=== PATIENT | male | born 1995 | race Two or more races ===

== ENCOUNTER 2024-09-24 17:01 | Emergency (ER) | payer MEDICAID, OTHER ==
[~2024-09-24] VITALS: Ht 154.9 cm; Wt 95.5 kg
[2024-09-24] MEDS: FLUORESCEIN SOD OPTH TEST STRIP RIGHTEYE ONE (19:01)
[2024-09-24] MEDS: TETRACAINE HCL 0.5% OPTH(EYE) SOLN 4ML RIGHTEYE ONE (19:02)
--- NOTE | 2024-09-24 19:30 | ED.PDOC ---
Eye-HPI HPI Comments THIS IS A 29-YEAR-OLD MALE PRESENTS TO THE ED CHIEF COMPLAINT RIGHT EYE PAIN. PATIENT STATES HE WAS WORKING OUTSIDE WHEN A JON OF WIND CAME AND BLEW SOMETHING IN HIS EYE. SUDDEN ONSET OF PAIN, REDNESS, AND WATERY DRAINAGE. VISION CHANGES, FEVER, CHILLS, OR ANY OTHER KNOWN INJURY. Chief Complaint: Eye Problem Time Seen by MD: 18:06 Primary Care Provider: none Reviewed Notes: Nurses Notes, Store Grocery Merchandiser Notes, Medications, Allergies Allergies: Coded Allergies: NO KNOWN ALLERGIES (Unverified , 09/24/24) Information Source: Patient Mode of Arrival: Ambulatory Physical Exam General Appearance: No Apparent Distress, Normal HEENT: Pharynx Normal, Other (RIGHT EYE HYPEREMIA CONJUNCTIVA OBVIOUS FOREIGN BODY NOTED DEFER TO WOOD'S LAMP EXAM) Neck: Full Range of Motion, Non-Tender Respiratory: Chest Non-Tender, Lungs Clear, No Accessory Muscle Use, No Respiratory Distress, Normal Breath Sounds Cardiovascular: No Murmur, Normal Peripheral Pulses, Regular Rate/Rhythm Breast Exam: Deferred Gastrointestinal: Non Tender, Soft Genitalia: Deferred Pelvic: Deferred Rectal: Deferred Extremities: Normal capillary refill, Normal inspection, Normal range of motion, Non-tender, No pedal edema Musculoskeletal : Apperance: Normal Neurologic: Alert, manager of warehouse II-XII nml as Tested, No Motor Deficits, Normal Affect, Normal Mood, No Sensory Deficits Cerebellar Function: Normal Reflexes: Normal Skin: Dry, Normal Color, Warm Lymphatic: No Adenopathy Was a procedure done? Was a procedure done?: Yes Sedation Sedation?: No Informed consent obtained: Yes Foreign Body Removal Foreign body in: Eye (RIGHT) Anesthetic: Other (TETRACAINE 0.5% 1 DROP) Prep: Prep (FLUORESCEIN) Procedure: Other (FLUORESCEIN UPTAKE 4:00 A.M. POSITION CORNEA. LACERATION, OR ULCERATION, POSSIBLE PENETRATING GLOBE INJURY VERSUS ABRASION NO NOTED FOREIGN BODY) Informed consent obtained: Yes Risks/benefits/alt described: Yes EENT DIFF Eye: Corneal Ulceration, Foreign Body-Conjunctiva, Foreign Body-Corneal, Foreign Body-Intraocular X-Ray, Labs, Meds, VS Vital Signs Date Time Temp Pulse Resp B/P (MAP) Pulse Ox O2 Delivery O2 Flow Rate FiO2 09/24/24 21:21 97.9 77 12 120/69 (86) 97 97.9 09/24/24 19:05 98.1 100 17 157/79 (105) 98 98.1 09/24/24 19:05 100 17 98 Room Air 09/24/24 17:47 98.1 100 17 157/79 (105) 98 Current Medications Medications (Trade) Dose Ordered Sig/Juan C Route Start Time Stop Time Status Last Admin Oxycodone/ Acetaminophen (Percocet 5/ 325MG Tablet) 1 tab ONCE ONCE PO 09/24/24 20:00 09/24/24 20:01 DC 09/24/24 20:00 Ketorolac Tromethamine (Toradol Injection) 60 mg ONCE ONCE IM 09/24/24 20:45 09/24/24 20:46 DC 09/24/24 20:59 X-Ray, Labs, Meds, VS Comment SEE WOOD'S LAMP PROCEDURE NOTES CT MAXILLOFACIAL SHOWS NO PENETRATING FOREIGN BODIES. POSSIBLE GLOBE INJURY VERSUS CORNEAL ABRASION. RECOMMEND TRANSFER TO A HIGHER LEVEL OF CARE FOR OPHTHALMOLOGY CONSULT AND EVALUATION. PATIENT AGREES WITH PLAN OF CARE. [facility] PAT[facility]. PATIENT STATES WOULD LIKE TO LEAVE AMA WAIT ANY LONGER FOR THE TRANSFER. ADVISED PATIENT OF THE RISKS SUCH NOT LIMITED TO LOSS OF VISION, INFECTION, SEPSIS, . INDICATES UNDERSTANDING AND ELECTS TO LEAVE AGAINST MEDICAL ADVICE OF THE RISKS Time of 1ST Reevaluation: 19:30 Reevaluation 1ST: Improved Patient Education/Counseling: Diagnosis, Treatment, Prognosis, Need For Follow Up Family Education/Counseling: Diagnosis, Treatment, Prognosis, Need For Follow Up Departure 1 Departure Time of Disposition: 21:41 Impression: Primary Impression: Eyeball wound due to penetrating foreign body Disposition: 04 INTERMEDIATE CARE FACILITY Condition: Stable Discharged With: Self Critical Care Note Critical Care Time?: No Stability Stability form required: JAY Hobbs Sep 24, 2024 19:30
--- NOTE | 2024-09-24 19:59 | DVH ---
HISTORY: R/O FB RIGHT EYE TECHNIQUE: Nonenhanced axial images through the facial bones with coronal and sagittal MPR. Radiation dose Information: CT Dose: CTDI volume is mGy. Dose-length product is mGy*cm COMPARISON: None FINDINGS: Mandible: Unremarkable Maxilla: Unremarkable Zygomatic arches: Unremarkable Nasal bone: Unremarkable Orbits: Unremarkable Sinuses: Clear Facial swelling: None IMPRESSION: 1. No abnormality demonstrated. No radiopaque foreign body. Radiation optimization: All CT scans at this facility use at least one of these dose optimization meli hniques: Automated exposure control mA and/or kV adjustment per patient size (includes targeted exams where dose is matched to clinical indication) or iterative reconstruction.
[2024-09-24] MEDS: OXYCODONE W/ ACETAMINOPHEN 5/325MG TABLET PO ONE (20:00)
[2024-09-24] MEDS: KETOROLAC TROMETH 60MG/2ML VIAL IM ONE (20:59)
[2024-09-24 21:21] VITALS: BP 120/69; PULSE 77; RESP 12; TEMP 97.9; O2SAT 97
== END 2024-09-24 21:44 | disposition left against medical advice (07) ==
LOC: ER 17:01
DX: S05.8X1A Other injuries of right eye and orbit, initial encounter (principal); X58.XXXA Exposure to other specified factors, initial encounter; Y93.89 Activity, other specified; Y92.89 Other specified places as the place of occurrence of the external cause; Y99.8 Other external cause status
CPT/HCPCS: 70486; 96372; 99285; J1885

== ENCOUNTER 2025-03-06 12:37 | Inpatient (IN) | payer MEDICAID ==
[~2025-03-06] VITALS: Ht 180.3 cm; Wt 93.5 kg
--- NOTE | 2025-03-06 13:53 | ED.PDOC ---
History of Present Illness HPI Comments 29 y/o M is BIBA for c/c alcohol intoxication. Per EMS report, patient was found at a [employer] parking lot complaining of weakness after eloping from [facility] ED and drinking 2x fireball shots, earlier, today. Previous ED visit for same c/c of alcohol intoxication. Vitals were noted to have been stable and within normal limits, with exception of being tachycardic and hypertensive and having a blood glucose of 111. Patient denies having additional acute associated symptoms at this time. Chief Complaint: ETOH Time Seen by MD: 13:30 Primary Care Provider: none Reviewed Notes: Nurses Notes, Electrical Installation Inspector Notes, Medications, Allergies Allergies: Coded Allergies: NO KNOWN ALLERGIES (Unverified , 09/24/24) Information Source: Patient, Emergency Med Personnel Mode of Arrival: EMS Severity: Moderate Duration: Since onset Prehospital treatment: 12 Lead EKG, Accucheck, Surface Supply Breathing Apparatus Past Medical History PAST MEDICAL HISTORY: Denies Surgical History: Denies all surgeries Family History Family History: Unknown Social History Smoker: Non-Smoker Alcohol: Heavy Drugs: Denies Drug Use Lives In: Home All Other Systems: Reviewed and Negative (As per HPI) Physical Exam General Appearance: No Apparent Distress, Normal, Other (intoxicated appearance ) HEENT: Normal ENT Inspection, Pharynx Normal, TMs Normal Neck: Full Range of Motion, Non-Tender, Normal, Normal Inspection Respiratory: Chest Non-Tender, Lungs Clear, No Accessory Muscle Use, No Respiratory Distress, Normal Breath Sounds Cardiovascular: No Edema, No JVD, No Murmur, No Gallop, Normal Peripheral Pulses, Regular Rate/Rhythm Breast Exam: Deferred Gastrointestinal: No Organomegaly, Non Tender, No Pulsatile Mass, Normal Bowel Sounds, Soft Genitalia: Deferred Pelvic: Deferred Rectal: Deferred Extremities: No calf tenderness, Normal capillary refill, Normal inspection, Normal range of motion, Non-tender, No pedal edema Musculoskeletal : Apperance: Normal Neurologic: Alert, senior accounts payable clerk II-XII nml as Tested, No Motor Deficits, No Sensory Deficits, Other (intoxicated ) Cerebellar Function: Normal Reflexes: Normal Skin: Dry, Normal Color, Warm Lymphatic: No Adenopathy Was a procedure done? Was a procedure done?: No Differential Dx Considerations may include: alcohol intoxication, substance abuse and dependency, electrolyte imbalance, dehydration, among others X-Ray, Labs, Meds, VS Vital Signs Date Time Temp Pulse Resp B/P (MAP) Pulse Ox O2 Delivery O2 Flow Rate FiO2 03/06/25 13:47 98.8 105 20 146/89 (108) 94 98.8 03/06/25 13:02 99.0 117 16 147/70 (95) 98 99.0 Lab Test 03/06/25 16:26 Range/Units Plasma/Serum Blood Alcohol 293.9 H <10 mg/dL Current Medications Medications (Trade) Dose Ordered Sig/Juan C Route Start Time Stop Time Status Last Admin Sodium Chloride 1,000 ml @ 1,000 mls/hr Q1H ONCE IV 03/06/25 14:00 03/06/25 14:59 DC 03/06/25 14:00 X-Ray, Labs, Meds, VS Comment This 30-year-old male presents secondary to alcohol intoxication. Patient endorses drinking alcohol. The patient has been 1 L of IV hydration upon reassessment, he continued to be intoxicated however, continue be ambulatory completely neurologically intact. His blood alcohol was nearly 300. The patient was monitored until he was ambulatory without assistance and then discharged home. He is asked to refrain from drinking alcohol. Time of 1ST Reevaluation: 14:00 Reevaluation 1ST: Unchanged Patient Education/Counseling: Need For Follow Up Family Education/Counseling: No Family Present SEPSIS Sepsis Screen Date sepsis recognized/suspect: Mar 06, 2025 Time Sepsis recognized/suspect: 1239 Recent Procedure: No On Antibiotic Therapy: No Respiratory Rate >20: No Heart Rate >90: Yes Temp<36 C (96.8 F) or >38.3 C: No SBP <90 or MAP <65 mmHG: No New Acute Mental Status Change: No Is the patient on CPAP, BIPAP,: No Physician Orders Blood Alcohol (03/06/25 15:21) Vital Signs Date Time Temp Pulse Resp B/P (MAP) Pulse Ox O2 Delivery O2 Flow Rate FiO2 03/06/25 13:47 98.8 105 20 146/89 (108) 94 98.8 03/06/25 13:02 99.0 117 16 147/70 (95) 98 99.0 Medications Medications Dose Ordered Sig/Juan C Route Start Time Stop Time Status Last Admin Dose Admin Sodium Chloride 1,000 ml @ 1,000 mls/hr Q1H ONCE IV 03/06/25 14:00 03/06/25 14:59 DC 03/06/25 14:00 Departure 1 Departure Time of Disposition: 17:07 Impression: Primary Impression: Alcohol intoxication Disposition: 01 HOME / SELF CARE / HOMELESS Condition: Fair Critical Care Note Critical Care Time?: No Stability Stability form required: No Heart Score Heart Score: Heart Score Response (Comments) Value History N/A 0 EKG N/A 0 Age N/A 0 Risk Factors N/A 0 Troponin N/A 0 Total 0 I personally scribed for TRACY CUELLAR MD ([email or web address]) on 03/06/25 at 13:53. El ectronically submitted by Pollo Poole ([email or web address]). I personally scribed for TRACY CUELLAR MD ([email or web address]) on 03/06/25 at 14:17. Electronically submitted by Pollo Poole ([email or web address]). TRACY CUELLAR MD Mar 06, 2025 13:53
[2025-03-06] MEDS: SODIUM CHLORIDE 0.9% 1,000 ML IV ONE ×2 (14:00→19:04)
[2025-03-06] MEDS: ONDANSETRON HCL 4 MG/2 ML VIAL IV ONE (19:04)
[2025-03-06] MEDS: LORazepam 2MG/ML-1ML VIAL IV ONE (19:04)
[2025-03-06] MEDS: FAMOTIDINE (10MG/ML) 2ML VL IV ONE (19:05)
[2025-03-06 20:09] LABS: Hematocrit 46.0 % (41.0-53.0); Hemoglobin 15.4 g/dL (13.5-17.5); Mean Corpuscular Hemoglobin 30.5 pg (28.0-32.0); Mean Corpuscular Volume 90.9 fL (80.0-100.0); Nucleated Red Blood Cells % 0.0 %
[2025-03-06 20:12] LABS: Potassium 4.1 mmol/L (3.5-5.1); Sodium 144 mmol/L (136-145)
[2025-03-06 20:13] LABS: Anion Gap 14 (5-15); Calcium 9.0 mg/dL (8.7-10.4); Carbon Dioxide 23 mmol/L (20-31)
[2025-03-06 20:14] LABS: Chloride 107 mmol/L (98-107)
[2025-03-06 20:18] LABS: BUN/Creatinine Ratio 13.0 (10.0-20.0); Blood Urea Nitrogen 14 mg/dL (9-23); Glucose 81 mg/dL (74-106)
--- NOTE | 2025-03-06 20:36 | ED.PDOC ---
Departure 1 Departure Time of Disposition: 20:33 (Patient left and had multiple syncopal episodes. We will admit patient for further workup and expert consultation) Impression: Primary Impression: Syncope and collapse Additional Impression: Alcohol intoxication Qualified Codes: F10.921 - Alcohol use, unspecified with intoxication delirium Disposition: ADMITTED INPATIENT Admit to: Med Surg Condition: Serious ANGELITO TEAGUE MD Mar 06, 2025 20:36
--- NOTE | 2025-03-06 20:51 | DVH ---
CLINICAL INDICATION: fall TECHNIQUE: 2 radiographic views of the right tibia and fibula were obtained. Comparison: None FINDINGS/IMPRESSION: There is a questionable nondisplaced oblique fracture through the distal right fibula. Correlate for tenderness over this area. Tibia appears intact.
--- NOTE | 2025-03-06 21:06 | DVH ---
EXAMINATION: AP portable chest radiograph CLINICAL HISTORY: etoh COMPARISON: None FINDINGS: Shallow inspiration. Lead wires overlie the thorax. No dominant consolidations in the visualized lung clarke. The costophrenic angles appear clear. No s izable pleural effusion or pneumothorax. The cardiomediastinal silhouette appears within normal limit s given technique. IMPRESSION: Limited study. No acute cardiopulmonary findings as visualized.
--- NOTE | 2025-03-06 22:05 | DVH ---
CT BRAIN WITHOUT CONTRAST HISTORY: syncope TECHNIQUE: Axial scans were obtained from the skull base through the vertex without contrast. Sagitta l and coronal reformats were generated. One or more of the following radiation dose reduction techniq ues were used for this examination: automated exposure control, adjustment of the mA and/or kV accord ing to patient size, use of iterative reconstruction technique. COMPARISON: None FINDINGS: No acute intracranial hemorrhage or evidence of large vessel territorial infarction identified at thi s time. No midline shift. The basilar cisterns are patent. Briseno-white differentiation appears relat ively preserved. The visualized paranasal sinuses and mastoid air cells are clear. No grossly displaced calvarial frac ture is identified. IMPRESSION: No acute intracranial findings.
[2025-03-06] MEDS ORDERED: FOLIC ACID 1 MG in D5W 5% 50 ML INJ ONE (22:15)
[2025-03-06] MEDS ORDERED: hydrALAZINE HCL 20 MG/ML VL IV PRN (22:15)
[2025-03-06] MEDS ORDERED: DOCUSATE SOD 100 MG CAP PO PRN (22:15)
[2025-03-06] MEDS ORDERED: ACETAMINOPHEN 325 MG TAB PO PRN (22:15)
[2025-03-06] MEDS: THIAMINE 100mg/ml INJ (200mg/2ml VIAL) IV ONE (23:07)
--- NOTE | 2025-03-06 23:07 | DVHHP2 ---
History of Present Illness Reason for Visit: Alcohol intoxication History of Present Illness The patient is a 29-year-old male who denies past medical history presented to [facility] ED for evaluation of alcohol intoxication. As reported by EMS, patient was found at a [employer]'s parking lot complaining of generalized weakness after eloping from [place] and drinking to fireball shots earlier today. Patient was seen and evaluated in the ED with tremors, generalized weakness, and unsteady gait. Patient reports she had a fall with sustained injury to his lower extremity two weeks ago. Laboratory data shows WBC 5.1, platelets 368, sodium 144, potassium 4.1, BUN 14, creatinine 1.08, glucose 81, calcium 9.0, serum alcohol to 93.9, blood pressure 126/76, heart rate 87, temperature 98.0 F, O2 saturation 99% on room air. Tibia/fibula x-ray revealing nondisplaced oblique fracture through the distal right fibula, correlate for tenderness over this area. Head CT showed no acute intracranial findings. Please see medication orders section in the computer. On my assessment, patient denied chest pain, no headache, no dizziness, no diaphoresis, no shortness of breaths, no nausea, no vomiting, no fever, no chills. Patient was admitted for further evaluation and medical management. Past Medical History Denies past medical history Past Surgical History Denies all surgeries Family History Reviewed, noncontributory to the management of this case. Past Social History The patient lives at home, denies smoking, drinks alcohol heavily, denies illicit drugs abuse. Review of Systems Constitutional: Yes: Weakness; No: Fever, Chills, Sweats, Malaise, Other Eyes: No: Pain, Vision change, Conjunctivae inflammation, Eyelid inflammation, Other, Redness ENT: No: Ear pain, Ear discharge, Nose pain, Nose discharge, Nose congestion, Mouth pain, Mouth swelling, Throat pain, Throat swelling, Other Respiratory: No: Cough, Dry, Shortness of breath, SOB with excertion, Wheezing, Hemoptysis, Pleuritic Pain, Sputum, Wheezing, Other Cardiovascular: No: Chest Pain, Palpitations, Orthopnea, Paroxysmal Noc. Dyspnea, Edema, Lt Headedness, Other Gastrointestinal: No: Nausea, Vomiting, Abdominal Pain, Diarrhea, Constipation, Melena, Hematochezia, Other Genitourinary: No Dysuria, No Frequency, No Incontinence, No Hematuria, No Retention, No Other Musculoskeletal: No: other, neck pain, shoulder pain, arm pain, back pain, hand pain, leg pain, foot pain Skin: No: Rash, Lesions, Jaundice, Bruising, Other Neurological: Other (Tremors); No: Weakness, Numbness, Incoordination, Change in speech, Confusion, Seizures Allergies: Coded Allergies: NO KNOWN ALLERGIES (Unverified , 09/24/24) Medications Current Medications Medications Dose Ordered Sig/Juan C Route Start Time Stop Time Status Last Admin Dose Admin Folic Acid 1 mg/ Dextrose 50.2 ml @ 200.8 mls/ hr DAILY INJ 03/07/25 10:00 Thiamine HCl 100 mg DAILY IV 03/07/25 10:00 Lorazepam 1 mg Q2HP PRN IV 03/06/25 22:15 Chlordiazepoxide HCl 25 mg Q6HPRN PRN PO 03/06/25 22:15 Famotidine 20 mg DAILY IV 03/07/25 10:00 Hydralazine HCl 10 mg Q6HP PRN IV 03/06/25 22:15 Sodium Chloride 10 ml Q8HR IV 03/07/25 06:00 Acetaminophen/ Hydrocodone Bitart 1 tab Q4HP PRN PO 03/06/25 22:15 Ondansetron HCl 4 mg Q4HP PRN IV 03/06/25 22:15 Docusate Sodium 100 mg BIDPRN PRN PO 03/06/25 22:15 Acetaminophen 650 mg Q6HP PRN PO 03/06/25 22:15 Exam Vital Signs Vital Signs Date Time Temp Pulse Resp B/P (MAP) Pulse Ox O2 Delivery O2 Flow Rate FiO2 03/06/25 22:00 91 15 125/74 (91) 100 03/06/25 20:00 98.0 98.0 03/06/25 19:35 Room Air* 0 21 General Appearance: Alert, Oriented X3, Cooperative, No acute distress HEENT: Atraumatic, PERRLA, EOMI, Mucous membr. moist/pink Respiratory: Clear to auscultation, Normal air movement Cardiovascular: Regular rate, Normal S1, Normal S2, No murmurs Abdominal: Normal bowel sounds, Soft, No tenderness, No hepatospenomegaly, No masses Extremities: No clubbing, No cyanosis, No edema, Normal pulses, No tenderness/swelling Skin: No rashes, No breakdown, No significant lesion Neuro: Normal speech, Normal tone, Sensation intact, Cranial nerves 3-12 NL, Reflexes 2+, Other (Generalized weakness) Psych/Mental Status: Mental status NL, Mood NL Labs/Xrays Labs Test 03/06/25 16:26 Range/Units White Blood Count 5.1 4.4-10.8 10^3/uL Red Blood Count 5.06 4.5-5.90 10^6/uL Hemoglobin 15.4 13.5-17.5 g/dL Hematocrit 46.0 41.0-53.0 % Mean Corpuscular Volume 90.9 80.0-100.0 fL Mean Corpuscular Hemoglobin 30.5 28.0-32.0 pg Mean Corpuscular Hemoglobin Concent 33.5 32.0-36.0 g/dL Red Cell Distribution Width 15.0 H 11.8-14.3 % Platelet Count 368 140-450 10^3/uL Mean Platelet Volume 7.7 6.9-10.8 fL Neutrophils (%) (Auto) 75.0 37.0-80.0 % Lymphocytes (%) (Auto) 20.9 10.0-50.0 % Monocytes (%) (Auto) 3.5 0.0-12.0 % Eosinophils (%) (Auto) 0.1 0.0-7.0 % Basophils (%) (Auto) 0.5 0.0-2.0 % Neutrophils # (Auto) 3.8 1.6-8.6 10 ^3/uL Lymphocytes # (Auto) 1.1 0.4-5.4 10 ^3/uL Monocytes # (Auto) 0.2 0-1.3 10 ^3/uL Eosinophils # (Auto) 0 0-0.8 10 ^3/uL Basophils # (Auto) 0 0-0.2 10 ^3/uL Nucleated Red Blood Cells 0.0 % Sodium Level 144 136-145 mmol/L Potassium Level 4.1 3.5-5.1 mmol/L Chloride Level 107 98-107 mmol/L Carbon Dioxide Level 23 20-31 mmol/L Anion Gap 14 5-15 Blood Urea Nitrogen 14 9-23 mg/dL Creatinine 1.08 0.700-1.30 mg/dL Glomerular Filtration Rate Calc 96 >90 mL/min BUN/Creatinine Ratio 13.0 10.0-20.0 Serum Glucose 81 74-106 mg/dL Calcium Level 9.0 8.7-10.4 mg/dL Plasma/Serum Blood Alcohol 293.9 H <10 mg/dL PATIENT: KELSEY LOWERYOACCT: [id number] UNIT: [id number] : 1995 LOC: ER ROOM / BED: / AGE / SEX: 29 / M ADM STATUS: REG ER SERVICE [id number] ORDERING PHYSICIAN: ANGELITO TEAGUE MD PROCEDURE(s): RTBFB - R TIB FIB XRAY REASON: fall ORDER NUMBER(s): [id number], ACCESSION NUMBER(s): [id number] CLINICAL INDICATION: fall TECHNIQUE: 2 radiographic views of the right tibia and fibula were obtained. Comparison: None FINDINGS/IMPRESSION: There is a questionable nondisplaced oblique fracture through the distal right fibula. Correlate for tenderness over this area. Tibia appears intact. ORDERING PHYSICIAN: ANGELITO TEAGUE MD PROCEDURE(s): HWOCT - HEAD WITHOUT CONTRAST REASON: syncope ORDER NUMBER(s): [id number], ACCESSION NUMBER(s): [id number] CT BRAIN WITHOUT CONTRAST HISTORY: syncope TECHNIQUE: Axial scans were obtained from the skull base through the vertex without contrast. Sagittal and coronal reformats were generated. One or more of the following radiation dose reduction techniques were used for this examination: automated exposure control, adjustment of the mA and/or kV according to patient size, use of iterative reconstruction technique. COMPARISON: None FINDINGS: No acute intracranial hemorrhage or evidence of large vessel territorial i nfarction identified at this time. No midline shift. The basilar cisterns are patent. Briseno-white differentiation appears relatively preserved. The visualized paranasal sinuses and mastoid air cells are clear. No grossly displaced calvarial fracture is identified. IMPRESSION: No acute intracranial findings. ORDERING PHYSICIAN: ANGELITO TEAGUE MD PROCEDURE(s): CXRP - CHEST PORTABLE REASON: etoh ORDER NUMBER(s): [id number], ACCESSION NUMBER(s): [id number] EXAMINATION: AP portable chest radiograph CLINICAL HISTORY: etoh COMPARISON: None FINDINGS: Shallow inspiration. Lead wires overlie the thorax. No dominant consolidations in the visualized lung clarke. The costophrenic angles appear clear. No sizable pleural effusion or pneumothorax. The cardiomediastinal silhouette appears within normal limits given technique. IMPRESSION: Limited study. No acute cardiopulmonary findings as visualized. SEPSIS Sepsis Screen Date sepsis recognized/suspect: Mar 06, 2025 Time Sepsis recognized/suspect: 1239 Recent Procedure: No On Antibiotic Therapy: No Respiratory Rate >20: No Heart Rate >90: Yes Temp<36 C (96.8 F) or >38.3 C: No SBP <90 or MAP <65 mmHG: No New Acute Mental Status Change: No Is the patient on CPAP, BIPAP,: No Physician Orders R Tib Fib Xray (03/06/25 18:59) Soc Telemed Psych Consult (03/06/25 19:35) Chest Portable (03/06/25 19:56) Head Without Contrast (03/06/25 20:33) Folic Acid (03/07/25 10:00) Thiamine Inj (03/07/25 10:00) Lorazepam 2mg/Ml Inj (Ativan Inj) (03/06/25 22:15) Chlordiazepoxide Hcl Capsule (Librium Ca (03/06/25 22:15) Famotidine Injection (Pepcid Injection) (03/07/25 10:00) Hydralazine Injection (Apresoline Inject (03/06/25 22:15) Allergies (03/06/25 22:14) Code Status (03/06/25 22:14) Sodium Chloride Lock (Saline Lock Ns) (03/07/25 06:00) Oxygen Per Hour (03/06/25 22:14) Hydrocodone-Acet 5/325mg Tab ([place] 5/32 (03/06/25 22:15) Ondansetron Hcl (Zofran) (03/06/25 22:15) Docusate Sodium Capsule (Colace Capsule) (03/06/25 22:15) Fall Risk Precautions In Place QSHIFT (03/06/25 22:14) Complete Blood Count (03/07/25 04:00) Comprehensive Metabolic Panel (03/07/25 04:00) Cardiac Diet-2gna,Lofat,Lochol (03/07/25 Breakfast) Condition: Serious (03/06/25 22:14) Acetaminophen Tablet (Tylenol Tablet) (03/06/25 22:15) Maintain Bed Rest (03/06/25 22:14) Sequential Compression Device (03/06/25 ) Vital Signs Date Time Temp Pulse Resp B/P (MAP) Pulse Ox O2 Delivery O2 Flow Rate FiO2 03/06/25 22:00 91 15 125/74 (91) 100 03/06/25 20:00 98.0 87 19 126/76 (93) 100 98.0 03/06/25 19:35 Room Air* 0 21 03/06/25 18:50 Room Air* 0 21 03/06/25 18:50 110 16 149/86 (107) 100 03/06/25 17:19 97.8 87 17 134/76 (95) 95 97.8 Laboratory Tests Test 03/06/25 16:26 White Blood Count 5.1 10^3/uL (4.4-10.8) Medications Medications Dose Ordered Sig/Juan C Route Start Time Stop Time Status Last Admin Dose Admin Famotidine 20 mg ONCE ONCE IV 03/06/25 19:00 03/06/25 19:01 DC 03/06/25 19:05 20 MG Lorazepam 2 mg ONCE ONCE IV 03/06/25 19:00 03/06/25 19:01 DC 03/06/25 19:04 2 MG Ondansetron HCl 4 mg ONCE ONCE IV 03/06/25 19:00 03/06/25 19:01 DC 03/06/25 19:04 4 MG Sodium Chloride 1,000 ml @ 1,000 mls/hr Q1H ONCE IV 03/06/25 14:00 03/06/25 14:59 DC 03/06/25 14:00 1,000 MLS/HR Sodium Chloride 1,000 ml @ 1,000 mls/hr Q1H ONCE IV 03/06/25 19:00 03/06/25 19:59 DC 03/06/25 19:04 1,000 MLS/HR Assessment/Plan Assessment/Plan Alcohol intoxication Alcohol withdrawal syndrome Generalized weakness Nondisplaced fracture of the distal right fibula Plan 1. Admit to telemetry unit 2. Breathing treatment 3. Pain control management 4. Management of fluids and electrolytes 5. Consultation for orthopedic/hospitalist 6. Diagnostic tests tibia/fibula x-ray 7. DVT prophylaxis-on SCDs 8. Repeat labs CBC, CMP in a.m. 9. Continue with current medical management 10. Treatment plan discussed with patient and RN. Patient verbalized understanding. Plan discussed with: Patient, Other (RN) My Orders Orders - DOUGLAS SÁNCHEZ DNP Procedure Category Date Status Time Folic Acid PHA 03/07/25 In Process 10:00 Thiamine Inj PHA 03/07/25 In Process 10:00 Lorazepam 2mg/Ml Inj PHA 03/06/25 In Process (Ativan Inj) 22:15 Chlordiazepoxide Hcl PHA 03/06/25 In Process Capsule (Librium Ca 22:15 Famotidine Injection PHA 03/07/25 In Process (Pepcid Injection) 10:00 Hydralazine Injection PHA 03/06/25 In Process (Apresoline Inject 22:15 Allergies LAMINE 03/06/25 In Process 22:14 Code Status CODE 03/06/25 Transmitted 22:14 Sodium Chloride Lock PHA 03/07/25 In Process (Saline Lock Ns) 06:00 Oxygen Per Hour RT 03/06/25 Transmitted 22:14 Hydrocodone-Acet PHA 03/06/25 In Process 5/325mg Tab ([place] 22:15 Ondansetron Hcl PHA 03/06/25 In Process (Zofran) 22:15 Docusate Sodium PHA 03/06/25 In Process Capsule (Colace 22:15 Fall Risk Precautions LAMINE 03/06/[address] 22:14 Complete Blood Count LAB 03/07/25 Verified 04:00 Comprehensive LAB 03/07/25 Verified Metabolic Panel 04:00 Cardiac DIET 03/07/25 Transmitted Diet-2gna,Lofat,Lochol Breakfast Condition: Serious LAMINE 03/06/25 In Process 22:14 Acetaminophen Tablet PHA 03/06/25 In Process (Tylenol Tablet) 22:15 Maintain Bed Rest LAMINE 03/06/25 In Process 22:14 Sequential LAMINE 03/06/25 In Process Compression Device Problem List: (1) Alcohol intoxication (2) Alcohol withdrawal syndrome (3) Generalized weakness (4) Nondisplaced fracture of distal end of right fibula Date of Service: Mar 06, 2025 Billing Provider: DOUGLAS SÁNCHEZ DNP Common Visit Codes: [id number] INP/OBS CARE (HIGH) DOUGLAS SÁNCHEZ DNP Mar 06, 2025 23:07
[2025-03-06] MEDS: LORazepam 2MG/ML-1ML VIAL IV PRN (23:08)
[2025-03-06] MEDS ORDERED: NITROGLYCERIN 0.4 MG SL TAB SL PRN (23:15)
[2025-03-06] MEDS: HYDROcodone-ACET 5/325MG TAB PO PRN (23:38)
[2025-03-06] MEDS: MULTIPLE VITAMIN TAB PO ONE (23:38)
[2025-03-07] VITALS (8 sets, daily range): BP systolic 142–155; BP diastolic 82–99; PULSE 87–103; RESP 18–19; TEMP 97.5–98.9; O2SAT 98–100
[2025-03-07] MEDS: SODIUM CHLOR 0.9% PF (SALINE LOCK) 10ML VIAL/SYR IV SCH (05:58)
[2025-03-07 06:18] LABS: Hematocrit 41.7 % (41.0-53.0); Hemoglobin 14.6 g/dL (13.5-17.5); Mean Corpuscular Hemoglobin 31.2 pg (28.0-32.0); Mean Corpuscular Volume 89.4 fL (80.0-100.0); Nucleated Red Blood Cells % 0.1 %
[2025-03-07 06:39] LABS: Albumin 4.3 g/dL (3.2-4.8); Alkaline Phosphatase 63 U/L (46-116); Anion Gap 15 (5-15); BUN/Creatinine Ratio 15.1 (10.0-20.0); Bilirubin, Total 0.7 mg/dL (0.2-1.0); Blood Urea Nitrogen 13 mg/dL (9-23); Calcium 9.3 mg/dL (8.7-10.4); Carbon Dioxide 23 mmol/L (20-31); Chloride 102 mmol/L (98-107); Potassium 3.7 mmol/L (3.5-5.1); Sodium 140 mmol/L (136-145); Total Protein 6.8 g/dL (5.7-8.2)
[2025-03-07 06:40] LABS: Alanine Aminotransferase 92 U/L (7-40); Glucose 66 mg/dL (74-106)
--- NOTE | 2025-03-07 08:32 | DVHINCON2 ---
Date of service: Mar 07, 2025 Reason for Consultation Right ankle fracture History of Present Illness 29 yo M who is admitted for alcohol withdrawal sp mechanical fall about 2 week ago twisting his right ankle. Pain/swelling/trouble bearing weight since that time. Patient was having some confusion/shakiness/tremors/weakness from withdrawals. Past Medical History Denies past medical history Past Surgical History Denies all surgeries Family History: Diabetes mellitus G8 FATHER Hypertension G8 FATHER Allergies: Coded Allergies: NO KNOWN ALLERGIES (Unverified , 09/24/24) Home Meds No Active Prescriptions or Reported Meds Current Medications Current Medications Medications (Trade) Dose Ordered Sig/Juan C Route PRN Reason Start Time Stop Time Status Last Admin Folic Acid 1 mg/ Dextrose 50.2 ml @ 200.8 mls/ hr DAILY INJ 03/07/25 10:00 03/06/25 23:26 DC Thiamine HCl 100 mg DAILY IV 03/07/25 10:00 Lorazepam (Ativan Inj) 1 mg Q2HP PRN IV ANXIETY 03/06/25 22:15 03/07/25 05:17 Chlordiazepoxide HCl (Librium Capsule) 25 mg Q6HPRN PRN PO ALCOHOL WITHDRAWAL SYMPTOMS 03/06/25 22:15 03/07/25 01:09 Famotidine (Pepcid Injection) 20 mg DAILY IV 03/07/25 10:00 Hydralazine HCl (Apresoline Injection) 10 mg Q6HP PRN IV SBP>150 03/06/25 22:15 Sodium Chloride (Saline Lock Ns) 10 ml Q8HR IV 03/07/25 06:00 03/07/25 05:58 Acetaminophen/ Hydrocodone Bitart ([place] 5/325MG Tab) 1 tab Q4HP PRN PO MODERATE PAIN (4-6 PAIN SCALE) 03/06/25 22:15 03/07/25 03:38 Ondansetron HCl (Zofran) 4 mg Q4HP PRN IV NAUSEA / VOMITING 03/06/25 22:15 Docusate Sodium (Colace Capsule) 100 mg BIDPRN PRN PO FOR CONSTIPATION 03/06/25 22:15 Acetaminophen (Tylenol Tablet) 650 mg Q6HP PRN PO PAIN SCALE 1-3 OR TEMP>100.4 03/06/25 22:15 Multivitamins (Mvi Tab) 1 tab DAILY PO 03/07/25 10:00 Nitroglycerin (Ntrostat Sublingual) 0.4 mg Q5MINP PRN SL FOR CHEST PAIN 03/06/25 23:15 Morphine Sulfate 2 mg Q30M PRN IV FOR CHEST PAIN 03/06/25 23:15 Folic Acid 1 mg/ Dextrose 50.2 ml @ 200.8 mls/ hr DAILY INJ 03/07/25 10:00 Review of Systems 10 POINT ROS is neg except per HPI Vital Signs Vital Signs Date Time Temp Pulse Resp B/P (MAP) Pulse Ox O2 Delivery O2 Flow Rate FiO2 03/07/25 05:00 98.2 93 19 151/90 (110) 98 98.2 03/07/25 02:24 Room Air* 0 21 Physical Exam NAD Aox3 verbal RLE: no deformity noted +TTP at lateral mal pain with TA/GS Labs/Diagnostic Data Labs Test 03/07/25 04:19 03/06/25 16:26 Range/Units White Blood Count 4.5 4.4-10.8 10^3/uL Red Blood Count 4.66 4.5-5.90 10^6/uL Hemoglobin 14.6 13.5-17.5 g/dL Hematocrit 41.7 41.0-53.0 % Mean Corpuscular Volume 89.4 80.0-100.0 fL Mean Corpuscular Hemoglobin 31.2 28.0-32.0 pg Mean Corpuscular Hemoglobin Concent 34.9 32.0-36.0 g/dL Red Cell Distribution Width 15.1 H 11.8-14.3 % Platelet Count 334 140-450 10^3/uL Mean Platelet Volume 8.0 6.9-10.8 fL Neutrophils (%) (Auto) 53.0 37.0-80.0 % Lymphocytes (%) (Auto) 38.2 10.0-50.0 % Monocytes (%) (Auto) 7.5 0.0-12.0 % Eosinophils (%) (Auto) 0.4 0.0-7.0 % Basophils (%) (Auto) 0.9 0.0-2.0 % Neutrophils # (Auto) 2.4 1.6-8.6 10 ^3/uL Lymphocytes # (Auto) 1.7 0.4-5.4 10 ^3/uL Monocytes # (Auto) 0.3 0-1.3 10 ^3/uL Eosinophils # (Auto) 0 0-0.8 10 ^3/uL Basophils # (Auto) 0 0-0.2 10 ^3/uL Nucleated Red Blood Cells 0.1 % Sodium Level 140 136-145 mmol/L Potassium Level 3.7 3.5-5.1 mmol/L Chloride Level 102 98-107 mmol/L Carbon Dioxide Level 23 20-31 mmol/L Anion Gap 15 5-15 Blood Urea Nitrogen 13 9-23 mg/dL Creatinine 0.86 0.700-1.30 mg/dL Glomerular Filtration Rate Calc 121 >90 mL/min BUN/Creatinine Ratio 15.1 10.0-20.0 Serum Glucose 66 L 74-106 mg/dL Calcium Level 9.3 8.7-10.4 mg/dL Total Bilirubin 0.7 0.2-1.0 mg/dL Aspartate Amino Transferase (AST) 41 H 13-40 U/L Alanine Aminotransferase (ALT) 92 H 7-40 U/L Alkaline Phosphatase 63 46-116 U/L Total Protein 6.8 5.7-8.2 g/dL Albumin 4.3 3.2-4.8 g/dL Plasma/Serum Blood Alcohol 293.9 H <10 mg/dL Plan/Recommendation 29 yo M with nondisplaced right distal fibula fracture 1. I had a long discussion with patient. At this point we can continue with nonop treatment with protected weight bearing 2. CAM boot RLE 3. NWB RLE 4. crutches 5. pain control 6. fu in [facility] ortho clinic in 4 weeks with right ankle xray Plan discussed with: Patient GUZMAN ROMERO MD Mar 07, 2025 08:32
[2025-03-07] MEDS: ONDANSETRON HCL 4 MG/2 ML VIAL IV PRN (08:43)
[2025-03-07] MEDS: THIAMINE 100mg/ml INJ (200mg/2ml VIAL) IV SCH (08:44)
[2025-03-07] MEDS: FAMOTIDINE (10MG/ML) 2ML VL IV SCH (08:47)
[2025-03-07] MEDS: MULTIPLE VITAMIN TAB PO SCH (08:50)
[2025-03-07] MEDS ORDERED: FOLIC ACID 1 MG in D5W 5% 50 ML INJ SCH (10:00)
[2025-03-07] MEDS: FOLIC ACID 1 MG in D5W 5% 50 ML INJ SCH (10:10)
[2025-03-07] MEDS: MORPHINE SULFATE INJ 2 MG/ml SYRG IV PRN (10:18)
--- NOTE | 2025-03-07 15:53 | DVHPN2 ---
Subjective seen in bed very sleepy Reviewed: H&P, Labs Changes from previous H/P or p: No Changes Eyes: No Pain, No Vision change, No Conjunctivae inflammation, No Eyelid inflammation, No Other, No Redness ENT: No Ear pain, No Ear discharge, No Nose pain, No Nose discharge, No Nose congestion, No Mouth pain, No Mouth swelling, No Throat pain, No Throat swelling, No Other Cardiovascular: No Chest Pain, No Palpitations, No Orthopnea, No Paroxysmal Noc. Dyspnea, No Edema, No Lt Headedness, No Other Respiratory: No Cough, No Dry, No Shortness of breath, No SOB with excertion, No Wheezing, No Hemoptysis, No Pleuritic Pain, No Sputum, No Other Gastrointestinal: No Nausea, No Vomiting, No Abdominal Pain, No Diarrhea, No Constipation, No Melena, No Hematochezia, No Other Genitourinary: No Dysuria, No Frequency, No Incontinence, No Hematuria, No Retention, No Other Musculoskeletal: No other, No neck pain, No shoulder pain, No arm pain, No back pain, No hand pain, No leg pain, No foot pain Skin: No Rash, No Lesions, No Jaundice, No Bruising, No Other Objective Vitals Vital Signs Date Time Temp Pulse Resp B/P (MAP) Pulse Ox O2 Delivery O2 Flow Rate FiO2 03/07/25 12:42 97.5 97 18 155/99 (117) 100 97.5 03/07/25 02:24 Room Air* 0 21 Intake/Output Intake and Output 03/07/25 07:00 Intake Total 550 ml Output Total 400 ml Balance 150 ml Intake Oral 550 ml Output Urine Total 400 ml General Appearance: Alert, Oriented X3 HEENT: Atraumatic Cardiovascular: Regular rate, Normal S1 Abdomen: Normal bowel sounds Medications Current Medications Medications Dose Ordered Sig/Juan C Route Start Time Stop Time Status Last Admin Dose Admin Thiamine HCl 100 mg DAILY IV 03/07/25 10:00 03/07/25 08:44 100 MG Lorazepam 1 mg Q2HP PRN IV 03/06/25 22:15 03/07/25 14:39 1 MG Chlordiazepoxide HCl 25 mg Q6HPRN PRN PO 03/06/25 22:15 03/07/25 12:16 25 MG Famotidine 20 mg DAILY IV 03/07/25 10:00 03/07/25 08:47 20 MG Hydralazine HCl 10 mg Q6HP PRN IV 03/06/25 22:15 Sodium Chloride 10 ml Q8HR IV 03/07/25 06:00 03/07/25 10:10 10 ML Acetaminophen/ Hydrocodone Bitart 1 tab Q4HP PRN PO 03/06/25 22:15 03/07/25 08:49 1 TAB Ondansetron HCl 4 mg Q4HP PRN IV 03/06/25 22:15 03/07/25 08:43 4 MG Docusate Sodium 100 mg BIDPRN PRN PO 03/06/25 22:15 Acetaminophen 650 mg Q6HP PRN PO 03/06/25 22:15 Multivitamins 1 tab DAILY PO 03/07/25 10:00 03/07/25 08:50 1 TAB Nitroglycerin 0.4 mg Q5MINP PRN SL 03/06/25 23:15 Morphine Sulfate 2 mg Q30M PRN IV 03/06/25 23:15 03/07/25 10:18 2 MG Folic Acid 1 mg/ Dextrose 50.2 ml @ 200.8 mls/ hr DAILY INJ 03/07/25 10:00 03/07/25 10:10 200.8 MLS/HR Laboratory Results Laboratory Tests 03/07/25 04:19 Chemistry Test 03/06/25 16:26 03/07/25 04:19 Calcium Level 9.0 mg/dL (8.7-10.4) 9.3 mg/dL (8.7-10.4) Albumin 4.3 g/dL (3.2-4.8) Total Protein 6.8 g/dL (5.7-8.2) LFT Test 03/07/25 04:19 Alanine Aminotransferase (ALT) 92 U/L (7-40) H Alkaline Phosphatase 63 U/L (46-116) Aspartate Amino Transferase (AST) 41 U/L (13-40) H Total Bilirubin 0.7 mg/dL (0.2-1.0) Assessment/Plan Assessment/Plan Alcohol intoxication Alcohol withdrawal syndrome Generalized weakness Nondisplaced fracture of the distal right fibula withdrawal protocol pending ortho consult Plan discussed with: Patient My Orders Orders - LYLA PIERRE MD Procedure Category Date Status Time Electrocardigram EKG 03/07/25 Logged 10:12 Date of Service: Mar 07, 2025 Billing Provider: LYLA PIERRE MD Common Visit Codes: [id number] INP/OBS CARE(HIGH) LYLA PIERRE MD Mar 07, 2025 15:53
[2025-03-08 05:00] VITALS: BP 136/93; PULSE 79; RESP 19; TEMP 97.8; O2SAT 98
--- NOTE | 2025-03-08 07:43 | ECG ---
[facility] Test Date: 2025-03-07 Test Time: 10:31:02 Pat Name: KELSEY LOWERY Department: Room: 0296T B Gender: M [employer]: LEANNE : 1995 Requested By: LYLA PIERRE Order Number: [id number] Reading MD: Kerwin Chan Measurements Intervals [place] Rate: 91 P: 56 [place]: 136 QRS: 46 QRSD: 100 T: 25 QT: 371 QTc: 457 Interpretive Statements Sinus rhythm Abnormal inferior Q waves Baseline wander in lead(s) V2 Electronically Signed On 03-08-2025 21:34:18 PDT by Kerwin Chan Please click the below link to view image of tracing.
[2025-03-08 08:00] VITALS: PULSE 59
[2025-03-08 09:00] VITALS: BP 143/96; PULSE 67; RESP 18; TEMP 98.6; O2SAT 99
[2025-03-08 13:00] VITALS: BP 144/86; PULSE 66; RESP 18; TEMP 98.6; O2SAT 98
--- NOTE | 2025-03-08 17:58 | DVHPN2 ---
Subjective More awake today Reviewed: H&P, Labs Changes from previous H/P or p: No Changes Eyes: No Pain, No Vision change, No Conjunctivae inflammation, No Eyelid inflammation, No Other, No Redness ENT: No Ear pain, No Ear discharge, No Nose pain, No Nose discharge, No Nose congestion, No Mouth pain, No Mouth swelling, No Throat pain, No Throat swelling, No Other Cardiovascular: No Chest Pain, No Palpitations, No Orthopnea, No Paroxysmal Noc. Dyspnea, No Edema, No Lt Headedness, No Other Respiratory: No Cough, No Dry, No Shortness of breath, No SOB with excertion, No Wheezing, No Hemoptysis, No Pleuritic Pain, No Sputum, No Other Gastrointestinal: No Nausea, No Vomiting, No Abdominal Pain, No Diarrhea, No Constipation, No Melena, No Hematochezia, No Other Genitourinary: No Dysuria, No Frequency, No Incontinence, No Hematuria, No Retention, No Other Musculoskeletal: No other, No neck pain, No shoulder pain, No arm pain, No back pain, No hand pain, No leg pain, No foot pain Skin: No Rash, No Lesions, No Jaundice, No Bruising, No Other Objective Vitals Vital Signs Date Time Temp Pulse Resp B/P (MAP) Pulse Ox O2 Delivery O2 Flow Rate FiO2 03/08/25 13:00 98.6 66 18 144/86 (105) 98 98.6 03/08/25 08:15 Nasal Cannula* 2 28 Intake/Output Intake and Output 03/08/25 07:00 Intake Total 1360 ml Output Total 980 ml Balance 380 ml Intake Oral 1360 ml Output Urine Total 980 ml # Voids 5 # Bowel Movements 1 General Appearance: Alert, Oriented X3 HEENT: Atraumatic Cardiovascular: Regular rate, Normal S1 Abdomen: Normal bowel sounds Medications Current Medications Medications Dose Ordered Sig/Juan C Route Start Time Stop Time Status Last Admin Dose Admin Thiamine HCl 100 mg DAILY IV 03/07/25 10:00 03/08/25 09:02 100 MG Lorazepam 1 mg Q2HP PRN IV 03/06/25 22:15 03/08/25 16:05 1 MG Chlordiazepoxide HCl 25 mg Q6HPRN PRN PO 03/06/25 22:15 03/08/25 17:34 25 MG Famotidine 20 mg DAILY IV 03/07/25 10:00 03/08/25 09:04 20 MG Hydralazine HCl 10 mg Q6HP PRN IV 03/06/25 22:15 Sodium Chloride 10 ml Q8HR IV 03/07/25 06:00 03/08/25 14:00 10 ML Acetaminophen/ Hydrocodone Bitart 1 tab Q4HP PRN PO 03/06/25 22:15 03/08/25 13:27 1 TAB Ondansetron HCl 4 mg Q4HP PRN IV 03/06/25 22:15 03/07/25 08:43 4 MG Docusate Sodium 100 mg BIDPRN PRN PO 03/06/25 22:15 Acetaminophen 650 mg Q6HP PRN PO 03/06/25 22:15 Multivitamins 1 tab DAILY PO 03/07/25 10:00 03/08/25 09:02 1 TAB Nitroglycerin 0.4 mg Q5MINP PRN SL 03/06/25 23:15 Morphine Sulfate 2 mg Q30M PRN IV 03/06/25 23:15 03/07/25 10:18 2 MG Folic Acid 1 mg/ Dextrose 50.2 ml @ 200.8 mls/ hr DAILY INJ 03/07/25 10:00 03/08/25 09:04 200.8 MLS/HR Laboratory Results Laboratory Tests 03/07/25 04:19 Assessment/Plan Assessment/Plan Alcohol intoxication Alcohol withdrawal syndrome Generalized weakness Nondisplaced fracture of the distal right fibula withdrawal protocol Ortho discussed with patient and prefers non op management with boot Plan to dc tomorrow if more alert Plan discussed with: Patient Date of Service: Mar 08, 2025 Billing Provider: YLLA PIERRE MD Common Visit Codes: [id number] INP/OBS CARE(HIGH) LYLA PIERRE MD Mar 08, 2025 17:58
[2025-03-08 20:00] VITALS: PULSE 92
[2025-03-08 21:00] VITALS: BP 126/90; PULSE 88; RESP 18; TEMP 97.9; O2SAT 97
[2025-03-09 01:00] VITALS: BP 150/10; PULSE 95; RESP 18; TEMP 98.3; O2SAT 98
[2025-03-09 05:00] VITALS: BP 133/99; PULSE 91; RESP 18; TEMP 97.8; O2SAT 99
[2025-03-09 08:00] VITALS: PULSE 64
[2025-03-09 08:55] VITALS: BP 139/93; PULSE 79; RESP 18; TEMP 98; O2SAT 99
[2025-03-09] MEDS ORDERED: CHL25C PO (12:24)
[2025-03-09] MEDS ORDERED: HYDR-4902 PO (12:24)
[2025-03-09 12:41] VITALS: BP 148/99; PULSE 76; RESP 18; TEMP 98.1; O2SAT 99
[2025-03-09 13:25] VITALS: BP 148/99; PULSE 76; RESP 18; TEMP 98.1; O2SAT 99
== END 2025-03-09 14:29 | disposition home or self-care (01) | DRG 775 ==
LOC: ER 12:37 → EDUNIT# 12:37 → EDBD 12:37 → OVERFLOW 23:06 → TELE-WESTW 03-07 02:12
PROVIDERS: ADMIT Hospitalist; ATTEND Hospitalist
DX: F10.229 Alcohol dependence with intoxication, unspecified (principal); F10.239 Alcohol dependence with withdrawal, unspecified; R25.1 Tremor, unspecified; S82.831A Other fracture of upper and lower end of right fibula, initial encounter for closed fracture; W19.XXXA Unspecified fall, initial encounter; Y93.89 Activity, other specified; Y92.89 Other specified places as the place of occurrence of the external cause; Y99.8 Other external cause status; Z82.49 Family history of ischemic heart disease and other diseases of the circulatory system; Z83.3 Family history of diabetes mellitus; Y90.8 Blood alcohol level of 240 mg/100 ml or more
CPT/HCPCS: 36415; 70450; 71045; 73590; 80048; 80053; 80320; 85025; 93005; 96361; 96374; 96375; G0378; J2405; J3490; J7060